=== PATIENT | male | born 1995 | race American Indian/Alaskan Native ===

== ENCOUNTER 2022-01-27 01:56 | Observation (INO) | payer MEDICAID ==
[2022-01-27] MEDS ORDERED: Ondansetron 4 MG/2 ML SDV IVPUSH ONE (02:33)
[2022-01-27] MEDS ORDERED: HYDROmorphone 1 MG/ML Syringe IVPUSH STA (02:33)
[2022-01-27] MEDS ORDERED: Sodium Chloride 0.9% 1,000 ML IV SCH ×2 (02:45→05:30)
[2022-01-27] MEDS ORDERED: Piperacillin/Tazobactam 4.5 GM in Sodium Chloride 0.9% 100 ML IV ONE ×2 (03:33→04:03)
[2022-01-27] MEDS ORDERED: Ondansetron 4 MG/2 ML SDV IVPUSH PRN ×2 (05:29→09:55)
[2022-01-27] MEDS ORDERED: HYDROmorphone 1 MG/ML Syringe IVPUSH PRN (05:29)
[2022-01-27] MEDS ORDERED: cefOXitin 2 GM in Premix Bag 1 BAG IV ONE (07:13)
[2022-01-27] MEDS ORDERED: Midazolam 1 MG/ML 2 ML SDV ONE (07:28)
[2022-01-27] MEDS ORDERED: Ondansetron 4 MG/2 ML SDV ONE ×2 (07:28→10:03)
[2022-01-27] MEDS ORDERED: Ketorolac 30 MG/ML SDV ONE (07:28)
[2022-01-27] MEDS ORDERED: fentaNYL 250 MCG/5 ML SDV ONE (07:28)
[2022-01-27] MEDS ORDERED: Propofol 200 MG/20 ML SDV ONE ×2 (07:28→09:33)
[2022-01-27] MEDS ORDERED: Rocuronium 50 MG/5 ML Vial ONE (07:28)
[2022-01-27] MEDS ORDERED: Lactated Ringers 1,000 ML ONE (07:29)
[2022-01-27] MEDS ORDERED: Lidocaine 1% 4 ML ONE (07:29)
[2022-01-27] MEDS ORDERED: Succinylcholine 200 MG/10 ML MDV ONE (07:43)
[2022-01-27] MEDS ORDERED: Bupivacaine 0.5%/EPINEPHrine 1:200,000 50 ML MDV ONE (07:58)
[2022-01-27] MEDS ORDERED: Dexamethasone 4 MG/ML 5 ML MDV ONE (08:31)
[2022-01-27] MEDS ORDERED: Neostigmine Methylsulfate 10 MG/10 ML MDV ONE (08:56)
[2022-01-27] MEDS ORDERED: fentaNYL 100 MCG/2 ML SDV IVPUSH PRN (09:55)
[2022-01-27] MEDS ORDERED: HYDROmorphone 0.5 MG/0.5 ML Syringe IVPUSH PRN (09:55)
[2022-01-27] MEDS ORDERED: Ketorolac 30 MG/ML SDV IVPUSH SCH (10:15)
== END 2022-01-27 16:15 | disposition home or self-care (01) ==
LOC: JD.ED 01:56 → JD.MS 03:35
PROVIDERS: ADMIT Surgery; ATTEND Surgery
DX: K35.80 Unspecified acute appendicitis (principal); E66.01 Morbid (severe) obesity due to excess calories; D72.829 Elevated white blood cell count, unspecified; Z79.899 Other long term (current) drug therapy; Z87.891 Personal history of nicotine dependence; Z68.41 Body mass index [BMI] 40.0-44.9, adult
CPT/HCPCS: 00840; 36415; 74177; 74177-26; 80053; 85007; 85027; 96361; 96365; 96375; 99140; 99285-25; J0330; J0694; J1100; J1170; J1885; J2250; J2405; J2543; J2704; J2710; J3010; J3490; J7030; J7120